=== PATIENT | female | born 1980 | race Caucasian/White ===

== ENCOUNTER 2019-02-12 22:53 | Emergency (ER) | payer OTHER ==
[~2019-02-12] VITALS: Ht 170.2 cm; Wt 81.8 kg
[2019-02-12 22:53] VITALS: BP 142/87
[~2019-02-12 22:53] MED LIST: ADDE20CA3 PO; IBUP80TA PO; KEFL500C17 PO; LORT5TAB PO; MAPA500T17 PO; MAPA500T2 PO; NEXP1IMP SC; PRENTAB74 PO; PYRI1TAB5 PO; ZOLO50TA PO
[2019-02-12] MEDS ORDERED: NAPR220C14 PO (23:09)
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
== END 2019-02-12 23:56 | disposition home or self-care (01) ==
LOC: M ED 22:53
DX: S63.502A Unspecified sprain of left wrist, initial encounter (principal); W19.XXXA Unspecified fall, initial encounter; Y92.830 Public park as the place of occurrence of the external cause; Z87.442 Personal history of urinary calculi; Z79.899 Other long term (current) drug therapy; Z79.1 Long term (current) use of non-steroidal anti-inflammatories (NSAID)

== ENCOUNTER 2019-03-12 03:10 | Emergency (ER) | payer OTHER ==
[~2019-03-12 03:10] MED LIST changes: +NAPR220C14 PO
[2019-03-12] MEDS ORDERED: NORCO, ANEXSIA 5/325MG TABLET (HYDROcodone/ACETAMINOPHEN) PO ONE (05:15)
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
[2019-03-12] MEDS ORDERED: IBUP-1022 PO (06:16)
[2019-03-12 06:47] VITALS: BP 161/81
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
--- NOTE | 2019-03-12 13:41 | ED PDOC ---
Post-Departure Follow-Up dr baldwin faxed formal report of ct c spine for fu Eva Calhoun MD March 12, 2019 13:41
== END 2019-03-12 06:52 | disposition home or self-care (01) ==
LOC: M ED 03:10
DX: S16.1XXA Strain of muscle, fascia and tendon at neck level, initial encounter (principal); S80.12XA Contusion of left lower leg, initial encounter; V43.62XA Car passenger injured in collision with other type car in traffic accident, initial encounter; Y92.410 Unspecified street and highway as the place of occurrence of the external cause; M50.01 Cervical disc disorder with myelopathy, high cervical region; M50.022 Cervical disc disorder at C5-C6 level with myelopathy; Z79.899 Other long term (current) drug therapy